=== PATIENT | male | born 1945 | race Caucasian/White ===

== ENCOUNTER 2018-11-11 20:11 | Emergency (ER) | payer OTHER ==
--- NOTE | 2018-11-11 20:34 | EDPHY ---
HPI/HX/ROS/PE/MDM - Data Points Imaging: Discussed imaging studies w/ square dance caller Radiologist Narrative: CHIEF COMPLAINT: Headache, double vision. HPI: This patient is a 73 year old male with history of hypertension. Wednesday, he developed a low grade headache, primarily in the upper right. He felt his eyes were not tracking properly and that he was unable to focus on objects. Wednesday, he developed intermittent diplopia - saw two lampposts side by side when there was only one. His symptoms are worse when he was tired in the evenings. His headache has been severe enough to wake him from sleep. He has history of BPPV and thought these symptoms may be related. Today, his diplopia has persisted and worsened throughout the day. He called his eye doctor who recommended he go the ED for a CT this evening. He continues to have a mild persistent right frontal headache. He denies any recent falls or head trauma. No extremity numbness or paresthesias. No neck pain. No chest pain, shortness of breath, fever, nausea, vomiting, or other associated symptoms. No ataxia. REVIEW OF SYSTEMS: A comprehensive 10 system review of systems is otherwise negative aside from elements mentioned in the history of present illness and medical decision making. PMH: Hypertension (Lisinopril). SOCIAL HISTORY: . at bedside. Employed. Lives in [place]. PHYSICAL EXAM: General:Patient is alert, in no acute distress. ENT: PERRL bilaterally. No scleral injection. No tenderness around eye. Patient reports diplopia in periphery and with distance. Possible slight appearance of weakness of abduction of the right eye but able to fully abduct. No rash noted. Patient able to focus on and complete crossword puzzle that he has brought with him without issue. Neck: Normal inspection. Full range of motion. Respiratory:No respiratory distress. Breath sounds normal bilaterally. Cardiovascular: Regular rate and rhythm. Strong peripheral pulses. Normal cap refill. Abdomen:The abdomen is nontender to palpation. There are no peritoneal signs. There are normal bowel sounds. Back: Normal to inspection. No tenderness to palpation. Skin: Normal color. No rash. Warm and dry. Extremities: Normal appearance. Full range of motion. Neuro: Oriented x3. Normal motor function. Normal sensory function. No pronator drift. Normal [id number]. No dysdiadochokinesis. (Rufus Reza) ED Course: 73 y/o male presents with acute headache and diplopia. On exam, the patients right eye appears to have delayed tracking. He reports diplopia in periphery and with distance. Neurologic exam shows no focal deficits. Plan for CT head, labs including CBC, chemistries. 20:[address] Mascorro, radiologist. CT is negative for acute processes. Plan for MRI brain with and without contrast. Patient is claustrophobic, plan to administer 1mg IV Ativan prior to MRI. (Rufus Reza) 2:30 a.m.- I assumed care of this patient from Dr. Reza at approximately 11:45 p.m.. The patient has had no progression of his symptoms here. 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 I followed up on the patient's CTA of his head and neck which was relatively unremarkable demonstrating only mild narrowing, less than 20%, the proximal aspect of the left ICA. I consulted with the on-call neurologist at [facility] who recommends ESR and CRP to evaluate for giant cell arteritis. If these are elevated, then patient should be admitted for possible temporal artery biopsy. If these tests are negative, patient can be discharged with follow-up with primary care doctor and Neurology. ESR and CRP were both within normal limits. The patient will be discharged home. I discussed his diagnosis and follow-up plan with him and his . They will be discharged from the emergency department. I have answered all their questions. (María Kwan) - Data Points Imaging Results: Imaging Impressions Head CT 11/11/18 20:38 Impression: 1. No acute intracranial findings. 2. 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 Findings discussed with Rufus Reza MD 11/11/2018 at 21:03. Brain MRI 11/11/18 21:04 Impression: 1. No visible etiology for the patient's symptoms. 2. Complete opacification of the left maxillary sinus with erosion of the medial wall of the left maxillary sinus. 3. Mild atrophy. Findings discussed with Rufus Reza MD 11/11/2018 at 23:10. Laboratory Results: Laboratory Results 11/11/18 20:42 11/11/18 20:42 11/11/18 11/11/1819 20:42 20:42 20:42 WBC RBC Hgb Hct 50.0 % % (40.0-51.0) MCV MCH MCHC RDW Plt Count MPV Neut % (Auto) Lymph % (Auto) [place] % (Auto) Eos % (Auto) Baso % (Auto) Nucleat RBC Rel Count Absolute Neuts (auto) Absolute Lymphs (auto) Absolute Monos (auto) Absolute Eos (auto) Absolute Basos (auto) Absolute Nucleated RBC Immature Gran % Immature Gran # ESR 2 MM/HR MM/HR (0-20) Sodium 138 mEq/L mEq/L (135-145) Potassium 3.6 mEq/L mEq/L (3.5-5.2) Chloride 101 mEq/L mEq/L (97-110) Carbon Dioxide 28 mEq/l mEq/l (22-31) Anion Gap 9 mEq/L mEq/L (6-14) BUN 20 mg/dL mg/dL (7-23) Creatinine 1.4 mg/dL H mg/dL (0.7-1.3) Estimated GFR 50 Glucose 116 mg/dL H mg/dL (70-100) Calcium 9.3 mg/dL mg/dL (8.5-10.4) C-Reactive Protein 5.2 mg/L mg/L (<10.0) 11/11/18 20:42 WBC 6.98 10^3/uL 10^3/uL (3.80-9.50) RBC 5.37 10^6/uL 10^6/uL (4.40-6.38) Hgb 17.3 g/dL g/dL (13.7-17.5) Hct 49.5 % % (40.0-51.0) MCV 92.2 fL fL (81.5-99.8) MCH 32.2 pg pg (27.9-34.1) MCHC 34.9 g/dL g/dL (32.4-36.7) RDW 11.9 % % (11.5-15.2) Plt Count 197 10^3/uL 10^3/uL (150-400) MPV 9.2 fL fL (8.7-11.7) Neut % (Auto) 52.5 % % (39.3-74.2) Lymph % (Auto) 37.5 % % (15.0-45.0) [place] % (Auto) 6.6 % % (4.5-13.0) Eos % (Auto) 2.4 % % (0.6-7.6) Baso % (Auto) 0.7 % % (0.3-1.7) Nucleat RBC Rel Count 0.0 % % (0.0-0.2) Absolute Neuts (auto) 3.66 10^3/uL 10^3/uL (1.70-6.50) Absolute Lymphs (auto) 2.62 10^3/uL 10^3/uL (1.00-3.00) Absolute Monos (auto) 0.46 10^3/uL 10^3/uL (0.30-0.80) Absolute Eos (auto) 0.17 10^3/uL 10^3/uL (0.03-0.40) Absolute Basos (auto) 0.05 10^3/uL 10^3/uL (0.02-0.10) Absolute Nucleated RBC 0.00 10^3/uL 10^3/uL (0-0.01) Immature Gran % 0.3 % % (0.0-1.1) Immature Gran # 0.02 10^3/uL 10^3/uL (0.00-0.10) ESR Sodium Potassium Chloride Carbon Dioxide Anion Gap BUN Creatinine Estimated GFR Glucose Calcium C-Reactive Protein Medications Given: Discontinued Medications Sodium Chloride (Ns) 1,000 mls @ 0 mls/hr IV EDNOW ONE; Wide Open PRN Reason: Protocol Stop: 11/11/18 20:42 Last Admin: 11/11/18 20:49 Dose: 1,000 mls Lorazepam (Ativan Injection) 1 mg IVP EDNOW ONE Stop: 11/11/18 21:19 Last Admin: 11/11/18 21:20 Dose: 1 mg General Time Seen by Provider: 11/11/18 20:23 Initial Vital Signs: Initial Vital Signs Temperature (C) 37.5 C 11/11/18 20:19 Heart Rate 72 11/11/18 20:19 Respiratory Rate 20 11/11/18 20:19 Blood Pressure 152/77 H 11/11/18 20:19 O2 Sat (%) 94 11/11/18 20:19 O2 Delivery Mode Room Air Allergies/Adverse Reactions: Penicillins Allergy (Severe, Verified 05/08/09 18:34) Home Medications: Medication Instructions Recorded DIOVAN 05/08/09 TOBRAMYCIN SULFATE 2 drops EACHEYE QID 5 Days 05/08/09 Lisinopril 11/11/18 Departure - Departure Disposition: Home, Routine, Self-Care Clinical Impression: Diplopia Condition: Good Instructions: Diplopia (ED) Additional Instructions: Follow-up with your rac specialist and a neurologist within 72 hours. Return to the ED for fever, worsening symptoms, change in vision, worsening headache, any numbness, weakness or tingling that effects any other part of your body. The etiology of your symptoms is currently unknown - should your condition change, we want you to return immediately to the ED. In the emergency department you had an MRI of your brain with and without contrast which was normal. You also had a CT scan of your head and neck with IV contrast which was normal. You had ESR and CRP testing which was normal. Referrals: Anitra Beth MD [Primary Care Provider] - As per Instructions Drew Whaley MD [Medical Doctor] - As per Instructions Report Scribed for: Rufus Reza Report Scribed by: Ele Castle Date of Report: 11/11/18 Time of Report: 20:34 Physician Review and Approval Statement: Portions of this note were transcribed by an ED scribe. I personally performed the history, physical exam, and medical decision making; and confirm the accuracy of the information in the transcribed note.
[2018-11-11] MEDS ORDERED: NS 1,000 ML IV ONE (20:41)
[2018-11-11 21:02] LABS: PLATELET COUNT 197 10^3/uL (150-400)
[2018-11-11] MEDS ORDERED: LORazepam 2 MG/ML INJ ONE (21:18)
[2018-11-11] MEDS ORDERED: LORazepam 2 MG/ML INJ IVP ONE (21:18)
[2018-11-11] MEDS ORDERED: GADOBUTROL 10 ML VIAL IVP ONE (21:40)
[2018-11-11] MEDS ORDERED: IOPAMIDOL (ISOVUE 370) 100 ML BTL IV ONE (23:47)
[2018-11-12 02:44] VITALS: BP 116/70
== END 2018-11-12 02:42 | disposition home or self-care (01) ==
DX: H53.2 Diplopia (principal); E86.9 Volume depletion, unspecified; I10 Essential (primary) hypertension
CPT/HCPCS: 70450; 70496; 70498; 70553; 96361; 96374; 99285; A9585; J2060; Q9967